=== PATIENT | female | born 1985 | race Hispanic/Latino ===

== ENCOUNTER 2017-06-28 16:23 | Emergency (ER) | payer BC ==
[2017-06-28 17:23] LABS: BASOPHILS % (AUTO) 0.6 % (0.0-5.0); EOSINOPHILS % (AUTO) 0.7 % (0.0-8.0); HEMATOCRIT 39.7 % (36-48); LYMPHOCYTES % (AUTO) 25.9 % (21.0-51.0); MEAN CORPUSCULAR HEMOGLOBIN 29.4 pg (27.0-33.0); MONOCYTES % (AUTO) 6.4 % (3.0-13.0); NEUTROPHILS % (AUTO) 66.4 % (40.0-77.0); NUCLEATED RED BLOOD CELLS 0.1 % (0.0-0.19); PLATELET COUNT (AUTO) 456 K/uL (130-400); RED BLOOD CELL COUNT(AUTO) 4.73 MIL/uL (4.00-5.50); RED CELL DISTRIBUTION WIDTH 12.6 % (11.0-15.5); WHITE BLOOD COUNT (AUTO) 9.5 K/uL (4.8-10.8)
[2017-06-28 17:33] LABS: CREATININE 0.7 mg/dL (0.5-1.5); POTASSIUM 3.4 mmol/L (3.5-5.1)
== END 2017-06-28 20:45 | disposition home or self-care (01) ==
LOC: EDH 16:23
DX: T18.128A Food in esophagus causing other injury, initial encounter (principal); X58.XXXA Exposure to other specified factors, initial encounter; Y93.89 Activity, other specified; Y92.89 Other specified places as the place of occurrence of the external cause; Y99.8 Other external cause status
CPT/HCPCS: 36415; 70360; 70490; 80048; 85025

== ENCOUNTER 2019-08-04 14:00 | Emergency (ER) | payer BC | END 2019-08-04 14:58 | disposition home or self-care (01) | LOC: EDH 14:00 | DX: O26.891 Other specified pregnancy related conditions, first trimester (principal); K59.00 Constipation, unspecified; Z3A.01 Less than 8 weeks gestation of pregnancy | CPT/HCPCS: 99281 ==

== ENCOUNTER 2019-11-14 11:27 | Observation (INO) | payer BC ==
[~2019-11-14] VITALS: Ht 162.6 cm; Wt 104.3 kg
[2019-11-14 12:43] LABS: APPEARANCE,URINE Clear (CLEAR); BILIRUBIN,URINE Negative (NEGATIVE); COLOR,URINE Yellow (YELLOW); GLUCOSE, URINE (UA) Negative (NEGATIVE); KETONES,URINE Trace mg/dL (NEGATIVE); LEUKOCYTE ESTERASE ,URINE Negative (NEGATIVE); NITRATE,URINE Negative (NEGATIVE); OCCULT BLOOD,URINE Negative (NEGATIVE); PH,URINE 7.5 (5.0-8.0); PROTEIN,URINE Negative (NEGATIVE)
[2019-11-14 12:47] LABS: BACTERIA,URINE Rare /HPF (None Seen); RBC,URINE 0-1 /HPF (0-1); SQUAMOUS EPITHELIAL CELL,UR Rare /HPF (0-2); WBC,URINE 0-1 /HPF (0-1)
== END 2019-11-14 14:50 | disposition home or self-care (01) ==
LOC: EDH 11:27 → LDH 11:46
PROVIDERS: ADMIT Specialist; ATTEND Specialist
DX: O9A.212 Injury, poisoning and certain other consequences of external causes complicating pregnancy, second trimester (principal); S89.82XA Other specified injuries of left lower leg, initial encounter; Z3A.22 22 weeks gestation of pregnancy; W18.2XXA Fall in (into) shower or empty bathtub, initial encounter; Y93.89 Activity, other specified; Y92.89 Other specified places as the place of occurrence of the external cause; Y99.8 Other external cause status
CPT/HCPCS: 81001; 99283; G0378 ×3

== ENCOUNTER 2020-01-03 08:36 | Observation (INO) | payer BC ==
[2020-01-03 10:02] LABS: APPEARANCE,URINE Clear (CLEAR); BILIRUBIN,URINE Negative (NEGATIVE); COLOR,URINE Yellow (YELLOW); GLUCOSE, URINE (UA) Negative (NEGATIVE); KETONES,URINE Negative (NEGATIVE); LEUKOCYTE ESTERASE ,URINE Small (NEGATIVE); NITRATE,URINE Negative (NEGATIVE); OCCULT BLOOD,URINE Negative (NEGATIVE); PH,URINE 6.5 (5.0-8.0); PROTEIN,URINE Negative (NEGATIVE)
[2020-01-03 10:24] LABS: BACTERIA,URINE Rare /HPF (None Seen); MUCUS,URINE Rare LPF (None Seen); RBC,URINE 0-1 /HPF (0-1); SQUAMOUS EPITHELIAL CELL,UR Rare /HPF (0-2); WBC,URINE 0-1 /HPF (0-1)
== END 2020-01-03 11:31 | disposition home or self-care (01) ==
LOC: EDH 08:36 → LDH 08:37
PROVIDERS: ADMIT Specialist; ATTEND Specialist
DX: O36.8130 Decreased fetal movements, third trimester, not applicable or unspecified (principal); Z90.49 Acquired absence of other specified parts of digestive tract; Z3A.29 29 weeks gestation of pregnancy
CPT/HCPCS: 59025; 76819; 81001; 99283; G0378 ×3

== ENCOUNTER 2020-02-16 10:54 | Observation (INO) | payer BC ==
[~2020-02-16] VITALS: Ht 162.6 cm; Wt 109.3 kg
[2020-02-16 11:23] VITALS: BP 129/76
== END 2020-02-16 13:30 | disposition home or self-care (01) ==
LOC: EDH 10:54 → LDH 10:55
PROVIDERS: ADMIT Specialist; ATTEND Specialist
DX: O36.8130 Decreased fetal movements, third trimester, not applicable or unspecified (principal); Z90.49 Acquired absence of other specified parts of digestive tract; Z3A.35 35 weeks gestation of pregnancy
CPT/HCPCS: 59025; 76819; 99283; G0378 ×2

== ENCOUNTER 2020-03-05 05:04 | Inpatient (IN) | payer BC ==
[~2020-03-05] VITALS: Ht 162.6 cm; Wt 112.5 kg
[2020-03-05 05:21] VITALS: BP 122/73
[2020-03-05] MEDS ORDERED: LACTATED RINGERS 1000ML IV PRN (05:30)
[2020-03-05 05:31] VITALS: BP 122/78
[2020-03-05] MEDS ORDERED: LACTATED RINGERS 1000ML 1,000 ML IV PRN (06:00)
[2020-03-05] MEDS ORDERED: OXYTOCIN-LR 20 UNITS/1000 ML 1,000 ML IV SCH ×2 (06:00→06:30)
[2020-03-05 06:15] LABS: HEMATOCRIT 37.7 % (36-48); MEAN CORPUSCULAR HEMOGLOBIN 28.6 pg (27.0-33.0); MEAN CORPUSCULAR HGB CONC 33.2 g/dL (32.0-36.0); MEAN CORPUSCULAR VOLUME 86.3 fL (79-99); RED BLOOD CELL COUNT(AUTO) 4.37 MIL/uL (4.00-5.50); RED CELL DISTRIBUTION WIDTH 14.2 % (11.0-15.5)
[2020-03-05 06:28] LABS: APPEARANCE,URINE CLOUDY (CLEAR); BILIRUBIN,URINE NEGATIVE (NEGATIVE); GLUCOSE, URINE (UA) NEGATIVE (NEGATIVE); KETONES,URINE 5 mg/dL (NEGATIVE); LEUKOCYTE ESTERASE ,URINE SMALL (NEGATIVE); NITRATE,URINE NEGATIVE (NEGATIVE); OCCULT BLOOD,URINE LARGE (NEGATIVE); PROTEIN,URINE 100 mg/dL (NEGATIVE); UROBILINOGEN,URINE 0.2 mg/dL (0.2-1.0)
[2020-03-05] MEDS ORDERED: ROPIVACAINE 0.2% 100ML VIAL 100 ML EP PRN (06:30)
[2020-03-05] MEDS ORDERED: MEPERIDINE-PF 50 MG/ML SYG IVP PRN (06:30)
[2020-03-05] MEDS ORDERED: LACTATED RINGERS 500 ML 500 ML IV PRN (06:30)
[2020-03-05] MEDS ORDERED: PROMETHAZINE HCL 25 MG/ML 1ML AMPULE IM PRN (06:30)
[2020-03-05] MEDS ORDERED: EPHEDRINE SULFATE 50 MG/ML AMPULE IVP PRN (06:30)
[2020-03-05] MEDS ORDERED: NALOXONE HCL 0.4 MG/1 ML ML IV PRN (06:30)
[2020-03-05] MEDS ORDERED: AMPICILLIN 2GM+NS 100ML 100 ML IV SCH (06:30)
[2020-03-05 06:52] LABS: COLOR,URINE PINK (YELLOW)
[2020-03-05 07:57] LABS: RBC,URINE 26-50 /HPF (0-1)
[2020-03-05 07:58] LABS: BACTERIA,URINE Many /HPF (None Seen); SQUAMOUS EPITHELIAL CELL,UR Moderate /HPF (0-2)
[2020-03-05] MEDS ORDERED: FENTANYL CITRATE PF 50 MCG/1 ML 2ML VIAL ONE (08:13)
[2020-03-05] MEDS ORDERED: AMPICILLIN 1GM+NS 50ML 50 ML IV SCH (10:30)
[2020-03-05 18:30] VITALS: BP 140/85
[2020-03-05] MEDS ORDERED: MEASLES/MUMPS/RUBELLA VACCINE, LIVE 0.5 ML/VIAL SQ PRN (18:45)
[2020-03-05] MEDS ORDERED: WITCH HAZEL 1 PAD TP PRN (18:45)
[2020-03-05] MEDS ORDERED: ACETAMINOPHEN 325 MG TAB PO PRN (18:45)
[2020-03-05] MEDS ORDERED: BENZOCAINE/LANOLIN/ALOE VERA 60 ML AEROSOL TP PRN (18:45)
[2020-03-05] MEDS ORDERED: ACETAMINOPHEN WITH CODEINE 1 TAB TAB PO PRN (18:45)
[2020-03-05] MEDS ORDERED: DIPH,PERTUSS(ACELL),TET VAC/PF 0.5 ML VIAL IM PRN (18:45)
[2020-03-05] MEDS ORDERED: LANOLIN 30GM OINTMENT TP PRN (18:45)
[2020-03-05 19:00] VITALS: BP 141/83
[2020-03-05] MEDS: IBUPROFEN 600 MG TABLET PO PRN (19:13)
[2020-03-05 19:40] VITALS: BP 123/80
[2020-03-05] MEDS ORDERED: PREN-160 PO (20:02)
[2020-03-05] MEDS: DOCUSATE SODIUM 100 MG CAP PO SCH (20:53)
[2020-03-05 23:16] VITALS: BP 135/82
[2020-03-06 03:21] VITALS: BP 116/64
[2020-03-06 07:07] VITALS: BP 129/85
[2020-03-06] MEDS: DOCUSATE SODIUM 100 MG CAP PO SCH ×2 (08:45→20:10)
[2020-03-06] MEDS: IBUPROFEN 600 MG TABLET PO PRN ×2 (08:46→16:30)
[2020-03-06 09:12] LABS: HEPATITIS Bs ANTIGEN SCREEN P Negative (Negative)
[2020-03-06 11:22] VITALS: BP 110/58
[2020-03-06 16:05] VITALS: BP 113/68
[2020-03-06 18:51] VITALS: BP 111/74
[2020-03-06 22:54] VITALS: BP 122/77
[2020-03-07 02:45] VITALS: BP 109/71
[2020-03-07] MEDS: IBUPROFEN 600 MG TABLET PO PRN (05:51)
[2020-03-07 06:15] VITALS: BP 107/56
[2020-03-07] MEDS: DOCUSATE SODIUM 100 MG CAP PO SCH (08:22)
[2020-03-07 11:15] VITALS: BP 106/66
== END 2020-03-07 12:30 | disposition home or self-care (01) | DRG 807 ==
LOC: EDH 05:04 → OBSVTOIN 05:05 → LDH 05:05 → WSH 18:16
PROVIDERS: ADMIT Specialist; ATTEND Specialist
PROC: 10E0XZZ Delivery of Products of Conception, External Approach (ICD-10-PCS; principal; 2020-03-05)
PROC: 0KQM0ZZ Repair Perineum Muscle, Open Approach (ICD-10-PCS; 2020-03-05)
PROC: 3E0234Z Introduction of Serum, Toxoid and Vaccine into Muscle, Percutaneous Approach (ICD-10-PCS; 2020-03-05)
PROC: 3E0134Z Introduction of Serum, Toxoid and Vaccine into Subcutaneous Tissue, Percutaneous Approach (ICD-10-PCS; 2020-03-05)
PROC: 3E0S3BZ Introduction of Anesthetic Agent into Epidural Space, Percutaneous Approach (ICD-10-PCS; 2020-03-05)
PROC: 00HU33Z Insertion of Infusion Device into Spinal Canal, Percutaneous Approach (ICD-10-PCS; 2020-03-05)
DX: O99.214 Obesity complicating childbirth (principal); Z37.0 Single live birth; O70.1 Second degree perineal laceration during delivery; Z23 Encounter for immunization; Z3A.38 38 weeks gestation of pregnancy; E66.01 Morbid (severe) obesity due to excess calories
CPT/HCPCS: 82948; 87077; 87186; 87340; 90715; A4314; A4606; G0378; J0290; J2590; J2795; J3010; J7120